=== PATIENT | female | born 1995 | race Caucasian/White ===

== ENCOUNTER 2017-04-23 19:16 | Emergency (ER) | payer OTHER ==
[~2017-04-23] VITALS: Ht 172.7 cm; Wt 59.0 kg
[~2017-04-23 19:16] MED LIST: BENTYL10 MG PO; CIPRO500 MG PO; FIORICET 50-301 EACH PO; FLAGYL500 MG PO; FLEXERIL10 MG PO; NAPROSYN500 MG PO; PROMETHAZINE HC25 M1 PO; SUMATRIPTAN SU100 MG PO; ZOFRAN ODT4 MG PO
[2017-04-23 19:49] LABS: BASOPHIL (%) 0.8 % (0-1); BASOPHIL COUNT 0.1 K/uL (0-0.1); EOSINOPHIL (%) 1.5 % (0-5); EOSINOPHIL COUNT 0.1 K/uL (0-0.3); IMMATURE GRANULOCYTE (%) 0.3 % (0.0-0.7); LYMPHOCYTE (%) 30.9 % (15-42); LYMPHOCYTE COUNT 2.8 K/uL (1.0-2.8); MCH 29.4 PG (29.0-34.0); MCHC 34.1 G/DL (30.0-36.0); MONOCYTE (%) 7.4 % (3-12); MONOCYTE COUNT 0.7 K/uL (0-0.8); NEUTROPHIL (%) 59.1 % (45-76); NEUTROPHIL COUNT 5.4 K/uL (1.8-6.4); PLATELET COUNT 311 K/uL (156-360); RBC DIS.WIDTH-CV 13.2 % (11.8-14.6); RBC DIS.WIDTH-SD 41.1 % (39-53); RED BLOOD COUNT 4.77 M/uL (3.80-5.20); WHITE BLOOD COUNT 9.1 K/uL (4.1-10.2)
[2017-04-23 19:57] LABS: ALBUMIN 4.8 g/dL (3.2-4.8); CHLORIDE 107 mEq/L (99-109); POTASSIUM 3.6 mEq/L (3.7-5.4); SODIUM 140 mEq/L (136-147)
[2017-04-23 19:59] LABS: GLUCOSE 98 mg/dL (70-99)
[2017-04-23 20:00] LABS: TOTAL PROTEIN 8.6 g/dL (6.4-8.3)
[2017-04-23 20:01] LABS: TOTAL BILIRUBIN 0.4 mg/dL (0.0-1.0)
[2017-04-23 20:03] LABS: ALKALINE PHOSPHATASE 75 IU/L (3-129); CREATININE 0.8 mg/dL (0.6-1.3); GFR ESTIMATE (CALCULATED) > 59 mL/min/
[2017-04-23 20:04] LABS: UREA NITROGEN (BUN) 14 mg/dL (9-23)
[2017-04-23 20:05] LABS: AST (GOT) 16 IU/L (2-34)
[2017-04-23 20:06] LABS: ALT (GPT) 13 IU/L (3-49); LIPASE 46 U/L (1.0-51.0)
[2017-04-23 20:12] LABS: QUANTITATIVE HCG < 4.0 MIU/ML
[2017-04-23 20:50] LABS: APPEARANCE CLOUDY ((CLEAR)); BILIRUBIN NEGATIVE; BLOOD NEGATIVE; COLOR YELLOW ((YELLOW)); GLUCOSE (STRIP) NEGATIVE; KETONES NEGATIVE; LEUKOCYTES NEGATIVE; NITRITE NEGATIVE; PROTEIN (STRIP) NEGATIVE; SPECIFIC GRAVITY 1.017 (1.000-1.030); UROBILINOGEN 0.2 MG/DL (0.2-1.0)
[2017-04-23 20:58] LABS: BACTERIA RARE /HPF; EPITHELIAL CELLS 1+ /HPF; MUCUS TRACE /LPF; RED BLOOD CELLS 0-5 /HPF (0-5); WHITE BLOOD CELLS 0-5 /HPF (0-5)
[2017-04-23 22:05] VITALS: BP 121/74
== END 2017-04-23 22:11 | disposition home or self-care (01) ==
LOC: EME 19:16
PROVIDERS: Physician Assistant
DX: N20.0 Calculus of kidney (principal); G43.909 Migraine, unspecified, not intractable, without status migrainosus
CPT/HCPCS: 74176; 80053; 81003; 83690; 84702; 85025; 99281; 99284; J1885